=== PATIENT | male | born 1995 | race Native Hawaiian/Other Pacific Islander ===

== ENCOUNTER 2017-07-23 10:42 | Emergency (ER) | payer OTHER ==
[2017-07-23 10:46] VITALS: BMI 21.0
[2017-07-23 10:48] VITALS: TEMP 98.5; O2SAT 98
[2017-07-23] MEDS ORDERED: Dexamethasone 10 MG in Sodium Chloride 0.9% 50 ML IV ONE (11:32)
[2017-07-23] MEDS ORDERED: Sodium Chloride 0.9% 1,000 ML IV STA (11:32)
[2017-07-23 12:04] LABS: BASO % 0.2 % (0.0-2.0); HEMOGLOBIN 13.4 g/dL (12.0-18.0); LYMPH # 0.8 K/uL (1.0-4.3); LYMPH % 9.6 % (20.0-40.0); MEAN CELL VOLUME 87.8 fl (80.0-94.0); MEAN CORPUSCULAR HEMOGLOBIN 29.9 pg (27.0-31.0); MEAN CORPUSCULAR HGB CONC 34.1 g/dL (33.0-37.0); MEAN PLATELET VOLUME 7.8 fl (7.2-11.7); MONO # 1.2 K/uL (0.0-0.8); MONO % 14.1 % (0.0-10.0); NEUT # 6.4 K/uL (1.8-7.0); NEUT % 76.1 % (50.0-75.0); PLATELET COUNT 138 K/uL (130-400); RBC 4.48 Mil/uL (4.40-5.90); WHITE BLOOD COUNT 8.4 K/uL (4.8-10.8)
[2017-07-23 12:17] LABS: BLOOD UREA NITROGEN 14 mg/dl (9-20); CALCIUM 8.6 mg/dL (8.4-10.2); GFR AFRICAN-AMERICAN > 60; GFR NON-AFRICAN AMERICAN > 60
[2017-07-23 12:58] LABS: LYMPHOCYTE 8 % (20-50); MONOCYTE 9 % (0-10); NEUTROPHIL 83 % (42-75); PLATELET ESTIMATE SLIGHTLY DECREASED (NORMAL); TOTAL CELLS COUNTED 100
[2017-07-23 12:59] LABS: ANISOCYTOSIS SLIGHT; LARGE PLATELETS PRESENT; OVALOCYTES SLIGHT; TEARDROP CELLS SLIGHT
[2017-07-23] MEDS ORDERED: Sodium Chloride 0.9% 100 ML ONE (13:24)
[2017-07-23] MEDS ORDERED: Iohexol 300 100 ML IJ ONE (13:24)
--- NOTE | 2017-07-23 14:18 | ED PDOC ---
HPI: General Adult Time Seen by Provider: 07/23/17 11:00 Chief Complaint (Nursing): Fever Chief Complaint (Provider): sore throat, body ache, and fever History Per: Patient History/Exam Limitations: no limitations Onset/Duration Of Symptoms: Days (3x) Current Symptoms Are (Timing): Still Present Additional Complaint(s): 22 year old male presents to the ED complaining of sore throat, body ache, and fever onset 3 days ago. Reports of associated symptoms of dehydration, dizziness , and mild headache. States he also feels pain whenever he drinks or eats. Patient went to the [facility] and the swab test performed there was negative. Patient is taking Motrin for pain and fever. PMD: No Family Provider Past Medical History Reviewed: Historical Data, Nursing Documentation, Vital Signs Vital Signs: Last Vital Signs Temp 98.5 F 07/23/17 10:45 Pulse 105 H 07/23/17 10:45 Resp 16 07/23/17 10:45 BP 119/58 L 07/23/17 10:45 Pulse Ox 98 07/23/17 14:55 - Medical History PMH: No Chronic Diseases - Surgical History Surgical History: No Surg Hx - Family History Family History: States: No Known Family Hx - Home Medications Home Medications: Ambulatory Orders Medication Instructions Recorded Clindamycin [Cleocin] 300 mg PO TID #21 cap 07/23/17 - Allergies Allergies/Adverse Reactions: Allergies Allergy/AdvReac Type Severity Reaction Status Date / Time No Known Allergies Allergy Verified 07/23/17 11:01 Review of Systems ROS Statement: Except As Marked, All Systems Reviewed And Found Negative Constitutional: Positive for: Fever, Other (body ache) ENT: Positive for: Throat Pain Neurological: Positive for: Headache (mild), Dizziness Physical Exam - Reviewed Nursing Documentation Reviewed: Yes Vital Signs Reviewed: Yes - Physical Exam Appears: Positive for: Well, Non-toxic, No Acute Distress Head Exam: Positive for: ATRAUMATIC, NORMAL INSPECTION, NORMOCEPHALIC Skin: Positive for: Normal Color, Warm, Dry Eye Exam: Positive for: EOMI, Normal appearance, PERRL ENT: Positive for: Pharyngeal Erythema, Tonsillar Exudate (erythematous, bilaterally), Tonsillar Swelling (Right tonsil is enlarged compared to the Left tonsil) Neck: Positive for: Normal (anterior adenopathy) Cardiovascular/Chest: Positive for: Tachycardia (mild) Respiratory: Positive for: Normal Breath Sounds. Negative for: Decreased Breath Sounds, Accessory Muscle Use, Respiratory Distress Gastrointestinal/Abdominal: Positive for: Normal Exam, Bowel Sounds, Soft. Negative for: Tenderness, Guarding, Rebound Back: Positive for: Normal Inspection. Negative for: L CVA Tenderness, R CVA Tenderness Extremity: Positive for: Normal ROM. Negative for: Tenderness, Pedal Edema, Deformity Neurologic/Psych: Positive for: Alert, Oriented (x3). Negative for: Motor/ Sensory Deficits - Laboratory Results Result Diagrams: 07/23/17 11:45 07/23/17 11:45 - ECG O2 Sat by Pulse Oximetry: 98 (RA) Pulse Ox Interpretation: Normal - Progress Re-evaluation Time: 15:35 Condition: Re-examined, Improved Medical Decision Making Medical Decision Making: Time: 1131 Initial Impression: pharyngitis, tonsillitis Differential Diagnosis includes but is not limited to: infectious mononucleosis , strep throat, tonsillar abscess Initial Plan: --Neck Soft Tissue w/ Contrast CT --BMP --CBC w/ Differential --Decadron Inj 10mg --Normal Saline 1000 mls/hr --Blood Culture --Throat Culture --Prentiss Stat --Influenza A B --Rapid Strep --Reevaluation Time: 1417 PROCEDURE: CT NECK WITH CONTRAST FINDINGS: NASOPHARYNX: Unremarkable. SUPRAHYOID NECK: Evaluation of the oropharynx reveals mild prominence of the right tonsillar pillar when compared to the left without abscess formation. No suspicious enhancement pattern is appreciated to suggest local mass and the pattern is felt to reflect tonsillitis. No definite additional suspicious enlarged, lymphoid tissue. Unremarkable oral cavity, parapharyngeal space and retropharyngeal space. INFRAHYOID NECK: Unremarkable larynx, hypopharynx, and supraglottic space. Vocal cords intact. GLANDS: Parotid and submandibular glands unremarkable. Normal size thyroid gland, without nodule. LYMPH NODES: Mild to moderate right level 2 and level 3 lymphadenopathy including level 3 lymph node measuring 2.0 x 1.4 cm and level level 2 lymph node measure 1.7 x 1.4 cm. CERVICAL SPINE: No fracture or spondylolisthesis. No destructive bony lesion. Bowel reversal cervical curvature. VASCULAR STRUCTURES: Unremarkable. OTHER FINDINGS: None. IMPRESSION: Findings most compatible with [id number] right tonsillitis without abscess. Mild to moderate right level 2 and level 3 lymphadenopathy as discussed above. Scribe Attestation: Documented by Ilsa Christine, acting as a scribe for Jp Manzanares MD Provider Scribe Attestation: All medical record entries made by the Scribe were at my direction and personally dictated by me. I have reviewed the chart and agree that the record accurately reflects my personal performance of the history, physical exam, medical decision making, and the department course for this patient. I have also personally directed, reviewed, and agree with the discharge instructions and disposition. Disposition - Clinical Impression Clinical Impression: Tonsillitis - Patient ED Disposition Is Patient to be Admitted: No Doctor Will See Patient In The: Office Counseled Patient/Family Regarding: Studies Performed, Diagnosis, Need For Followup - Disposition Referrals: Boy Pizarro MD [Staff Provider] - Disposition: Routine/Home Disposition Time: 15:36 Condition: GOOD Additional Instructions: Take your medications as instructed. Follow up with your PCP in 2-3 days. Prescriptions: Clindamycin [Cleocin] 300 mg PO TID #21 cap Instructions: Sore Throat, Adult (DC)
--- NOTE | 2017-07-23 14:19 | CT ---
PROCEDURE: CT NECK WITH CONTRAST HISTORY: sore throat right tonsillar mass COMPARISON: None TECHNIQUE: CT of the neck with intravenous contrast. Coronal and sagittal reformats generated. Intravenous contrast dose: Omnipaque 300, 95 cc Radiation dose: DLP 413.72 mGy-cm This CT exam was performed using one or more of the following dose reduction techniques: Automated exposure control, adjustment of the mA and/or kV according to patient size, and/or use of iterative reconstruction technique. FINDINGS: NASOPHARYNX: Unremarkable. SUPRAHYOID NECK: Evaluation of the oropharynx reveals mild prominence of the right tonsillar pillar when compared to the left without abscess formation. No suspicious enhancement pattern is appreciated to suggest local mass and the pattern is felt to reflect tonsillitis. No definite additional suspicious enlarged, lymphoid tissue. Unremarkable oral cavity, parapharyngeal space and retropharyngeal space. INFRAHYOID NECK: Unremarkable larynx, hypopharynx, and supraglottic space. Vocal cords intact. GLANDS: Parotid and submandibular glands unremarkable. Normal size thyroid gland, without nodule. LYMPH NODES: Mild to moderate right level 2 and level 3 lymphadenopathy including level 3 lymph node measuring 2.0 x 1.4 cm and level level 2 lymph node measure 1.7 x 1.4 cm. CERVICAL SPINE: No fracture or spondylolisthesis. No destructive bony lesion. Bowel reversal cervical curvature. VASCULAR STRUCTURES: Unremarkable. OTHER FINDINGS: None. IMPRESSION: Findings most compatible with [id number] right tonsillitis without abscess. Mild to moderate right level 2 and level 3 lymphadenopathy as discussed above.
[2017-07-23 16:18] VITALS: BP 122/60; PULSE 90; RESP 18
== END 2017-07-23 16:11 | disposition home or self-care (01) ==
LOC: H.ER 10:42
DX: J03.90 Acute tonsillitis, unspecified (principal)
CPT/HCPCS: 70491; 80048; 85025; 86308; 87040; 87070; 87430; 87804; 96374; 99283; J1100; J7040; Q9967